=== PATIENT | male | born 1975 | race Caucasian/White ===

== ENCOUNTER 2018-09-29 22:07 | Emergency (ER) | payer MEDICAID ==
[~2018-09-29] VITALS: Ht 180.3 cm; Wt 61.1 kg
[2018-09-29 22:14] VITALS: BP 151/100
[2018-09-30] MEDS ORDERED: PENI-88 PO (00:35)
[2018-09-30] MEDS ORDERED: IBUP-1984 PO (00:35)
--- NOTE | 2018-09-30 00:35 | NUR ---
PT HOMELESS, GIVEN MEAL, DECLINED CLOTHING AND DECLINED TRANSPORTATION
[2018-09-30] MEDS ORDERED: ibuprofen tablet 400 MG TABLET PO ONE (00:40)
== END 2018-09-30 00:50 | disposition home or self-care (01) ==
LOC: ER 22:07
DX: K04.7 Periapical abscess without sinus (principal)
CPT/HCPCS: 99283

== ENCOUNTER 2021-09-18 10:31 | Emergency (ER) | payer MEDICAID ==
[~2021-09-18] VITALS: Ht 180.3 cm; Wt 86.4 kg
[2021-09-18] MEDS ORDERED: NALO4SPR BOTHNARES (10:39)
[2021-09-18 11:46] VITALS: BP 118/74
== END 2021-09-18 11:51 | disposition home or self-care (01) ==
LOC: ER 10:31
DX: T40.411A Poisoning by fentanyl or fentanyl analogs, accidental (unintentional), initial encounter (principal); F15.90 Other stimulant use, unspecified, uncomplicated; Z79.899 Other long term (current) drug therapy; Y92.89 Other specified places as the place of occurrence of the external cause
CPT/HCPCS: 99283